=== PATIENT | male | born 1935 | race Caucasian/White ===

== ENCOUNTER → 2019-10-08 | Outpatient (CLI) | payer MEDICARE ==
[~2019-10-08] MED LIST: ASPIRIN81 M1 PO; CARTIA XT240 MG PO; HYDROCODONE BIT1 T11 PO; IBUPROFEN600 MG PO; LEVOTHYROXINE0.05 M1 PO; SYNTHROID25 MCG PO; TOPROL XL25 MG PO; ZOCOR5 MG PO
[2019-10-08 14:35] LABS: BASO # 0.1 10*3/uL (0.0-0.1); BASO % 0.9 % (0.0-1.0); EOS # 0.1 10*3/uL (0.0-0.4); EOS % 0.9 % (1.0-4.0); HEMATOCRIT 42.6 % (42.0-52.0); LYMPH % 21.5 % (27.0-41.0); MEAN CORPUSCULAR HGB 29.1 pg (27.0-31.0); MEAN CORPUSCULAR HGB CONC 34.3 g/dl (33.0-37.0); MEAN PLATELET VOLUME 9.4 fl (9.6-12.3); MONO % 10.6 % (3.0-9.0); NEUT # 6.1 10*3/uL (2.3-7.9); NEUT % 65.9 % (47.0-73.0); PLATELET COUNT AUTOMATED 291 10*3/uL (130-400); RED BLOOD COUNT 5.01 10*6/uL (4.50-5.90); RED CELL DISTRI WIDTH 12.7 % (0-14.5); WHITE BLOOD COUNT 9.2 10*3/uL (4.8-10.8)
== END | disposition home or self-care (01) ==
LOC: LAB 13:43
PROVIDERS: Orthopaedic Surgery
DX: R22.32 Localized swelling, mass and lump, left upper limb (principal)

== ENCOUNTER → 2020-10-24 | Outpatient (CLI) | payer MEDICARE ==
[2020-10-24 12:00] LABS: BASO # 0.1 10*3/uL (0.0-0.1); BASO % 0.7 % (0.0-1.0); EOS # 0.1 10*3/uL (0.0-0.4); EOS % 1.2 % (1.0-4.0); HEMATOCRIT 47.3 % (42.0-52.0); LYMPH # 2.2 10*3/uL (1.3-4.4); LYMPH % 21.4 % (27.0-41.0); MEAN CELL VOLUME 85.5 fl (80.0-94.0); MEAN CORPUSCULAR HGB 28.6 pg (27.0-31.0); MEAN CORPUSCULAR HGB CONC 33.4 g/dl (33.0-37.0); MEAN PLATELET VOLUME 8.9 fl (9.6-12.3); MONO % 9.8 % (3.0-9.0); NEUT # 6.9 10*3/uL (2.3-7.9); NEUT % 66.1 % (47.0-73.0); PLATELET COUNT AUTOMATED 321 10*3/uL (130-400); RED BLOOD COUNT 5.53 10*6/uL (4.50-5.90); RED CELL DISTRI WIDTH 12.8 % (0-14.5); WHITE BLOOD COUNT 10.4 10*3/uL (4.8-10.8)
[2020-10-24 12:25] LABS: ALBUMIN 3.8 gm/dl (3.1-4.5); CREATININE 1.42 mg/dL (0.70-1.30); POTASSIUM 4.2 mmol/L (3.5-5.1); TOTAL PROTEIN 7.6 gm/dL (6.4-8.2)
[2020-10-24 12:32] LABS: THYROID STIM HORMONE (HS) 3.04 uIU/ml (0.358-4.75)
== END | disposition home or self-care (01) ==
LOC: LAB 10:56
PROVIDERS: ATTEND Internal Medicine Interventional Cardiology
DX: I10 Essential (primary) hypertension (principal); I47.1 Supraventricular tachycardia; R00.2 Palpitations; E78.2 Mixed hyperlipidemia

== ENCOUNTER 2022-04-25 09:59 | Emergency (ER) | payer MEDICARE ==
[~2022-04-25] VITALS: Ht 165.1 cm; Wt 63.5 kg
[2022-04-25 10:23] VITALS: BP 176/78
[2022-04-25] MEDS ORDERED: ASPERCREME LID1 EACH T (12:41)
[2022-04-25] MEDS ORDERED: TYLENOL325 M1 PO (12:41)
[2022-04-25] MEDS ORDERED: VOLTAREN ARTHRI20 GM T (12:41)
== END 2022-04-25 13:36 | disposition home or self-care (01) ==
LOC: ED 09:59
DX: S22.080A Wedge compression fracture of T11-T12 vertebra, initial encounter for closed fracture (principal); S32.020A Wedge compression fracture of second lumbar vertebra, initial encounter for closed fracture; G20 Parkinson's disease; R26.89 Other abnormalities of gait and mobility; Z79.899 Other long term (current) drug therapy; Z79.82 Long term (current) use of aspirin; W10.8XXA Fall (on) (from) other stairs and steps, initial encounter; Y93.89 Activity, other specified; Y92.89 Other specified places as the place of occurrence of the external cause; Y99.8 Other external cause status